=== PATIENT | male | born 1980 | race Caucasian/White ===

== ENCOUNTER 2016-12-09 16:28 | Emergency (ER) | payer OTHER ==
--- NOTE | ~2016-12-09 | CR115 ---
[facility]. [facility] A Service of [facility] & [facility] RADIOLOGY TEXT RESULTS PATIENT: BRE VILLARREAL LOCATION: SED : 76 UNIT #: [id number] AGE: [address]: MICK JC SEX: M ORDER DR: [id number] [place] [id number] E MR#: [id number] Acc #: [id number] NAME: BRE VILLARREAL : 1980 SEX: M STUDY DATE/TIME: 12/09/2016 18:43 UNIT: SED ROOM: STUDY DESCRIPTION: CR Finger 2 View [address] R[address] Attending Physician: Mick Jc Ordering Physician: Mick Jc Primary Care Physician: Juan Jose Mack M.D. MEDICAL IMAGING REPORT This report is preliminary unless electronic signature is present. EXAM Right fifth finger 2 views 12/09/2016 HISTORY Right fifth finger laceration today. Glass broke while washing dishes. Evaluate for foreign body. FINDINGS Two views of the left fifth finger demonstrate no fracture. No foreign body is seen. IMPRESSION No evidence of fracture or radiopaque foreign body. Dictated by... Vu Bonds M.D. THIS IS AN ELECTRONICALLY VERIFIED REPORT Vu Bonds M.D. at 12/10/2016 2:13 PM IAN/haven TD: 12/10/2016 10:20 JOB #: [id number] MEDICAL IMAGING REPORT Page 1 of 1
[~2016-12-09 16:28] MED LIST: ACETAMINOPHEN PO; CLONIDINE HCL0.1 MG PO; EC-NAPROSYN500 MG PO; FLEXERIL PO; LEVAQUIN PO; METHADOSE PO; PHENERGAN25 M1 PO; TYLENOL #3 PO; XANAX1 MG PO; ZANAFLEX4 M1 PO
[2016-12-09] MEDS ORDERED: DURAGESIC1 EAC1 (16:34)
== END 2016-12-09 21:08 | disposition home or self-care (01) ==
LOC: SED 16:28
DX: S61.216A Laceration without foreign body of right little finger without damage to nail, initial encounter (principal); F17.210 Nicotine dependence, cigarettes, uncomplicated; W25.XXXA Contact with sharp glass, initial encounter; Y92.009 Unspecified place in unspecified non-institutional (private) residence as the place of occurrence of the external cause; Z23 Encounter for immunization
CPT/HCPCS: 12001; 73140; 90471; 90715; 99283

== ENCOUNTER 2016-12-24 09:12 | Emergency (ER) | payer OTHER ==
[~2016-12-24] VITALS: Ht 175.3 cm; Wt 72.6 kg
--- NOTE | ~2016-12-24 | CR210 ---
[facility] A Service of [facility] RADIOLOGY TEXT RESULTS PATIENT: BRE VILLARREAL LOCATION: [facility] : [birth year] UNIT #: [id number] AGE: [address]: Teresa Alamo SEX: M ORDER DR: [id number] [facility] [address] [place], [place] [address] [id number] E MR#: [id number] Acc #: [id number] NAME: BRE VILLARREAL. : 1980 SEX: M STUDY DATE/TIME: 12/24/2016 09:39 UNIT: [facility] ROOM: STUDY DESCRIPTION: CR Ribs Uni 2 View W PA Lt Attending Physician: Teresa Alamo P.A.-C. Ordering Physician: Teresa Alamo P.A.-C. Primary Care Physician: Juan Jose Mack M.D. MEDICAL IMAGING REPORT This report is preliminary unless electronic signature is present EXAM Left rib series with chest, 12/24/2016, 0939 hours. CLINICAL HISTORY One week history of left anterior chest pain, pain with cough and deep inspiration. Patient fell into the bed of a truck and hit left anterior ribs while changing a tire one week ago. COMPARISON 03/27/2016 FINDINGS Upright chest film and AP and oblique views of the left ribs were performed. The chest film demonstrates normal cardiac, mediastinal and hilar contours. The lungs are clear. There is no pleural effusion or pneumothorax. One AP and 1 oblique view of the left ribs are negative for fracture. IMPRESSION 1. No acute cardiopulmonary findings. 2. No left rib fracture, pleural effusion or pneumothorax seen. Dictated by... Tamica Jernigan M.D. THIS IS AN ELECTRONICALLY VERIFIED REPORT Tamica Jernigan M.D. at 12/24/2016 6:56 PM [place] TD: 12/24/2016 15:17 JOB #: [id number] [facility] A Service of [facility] RADIOLOGY TEXT RESULTS PATIENT: BRE VILLARREAL LOCATION: [facility] #: [id number] : [birth year] UNIT #: [id number] AGE: [address]: Teresa Alamo SEX: M ORDER DR: MEDICAL IMAGING REPORT Page 1 of 1 COPY
[~2016-12-24 09:12] MED LIST changes: +DURAGESIC1 EAC1
== END 2016-12-24 10:14 | disposition home or self-care (01) ==
LOC: CFTX 09:12 → CED 09:12 → CFTX 09:29
DX: S61.216D Laceration without foreign body of right little finger without damage to nail, subsequent encounter (principal); S29.8XXA Other specified injuries of thorax, initial encounter; W20.8XXA Other cause of strike by thrown, projected or falling object, initial encounter; Y92.89 Other specified places as the place of occurrence of the external cause
CPT/HCPCS: 71101; 96372; 99282; J1885